=== PATIENT | female | born 1995 | race African-American/Black ===

== ENCOUNTER 2017-12-07 09:15 | Emergency (ER) | payer OTHER, SELFPAY ==
[2017-12-07 09:19] VITALS: BP 114/83; PULSE 70; RESP 12; TEMP 36.4; O2SAT 100
--- NOTE | 2017-12-07 10:15 | W.ED.GENAD ---
Discharge Plan Discharge Details Chief Complaint: DentalOral Clinical Impression: Acute parotitis Reason For Visit: right face pain Primary Care Provider: Kirsten Trivedi ED Provider: Buddy Jorge Disposition Patient Disposition: HOME Condition: Stable Home Meds and New Rx's Prescriptions: New amoxicillin-pot clavulanate 875-125 mg tablet 1 tab PO BID Qty: 14 RF: 0 Continue albuterol sulfate 8.5 GM HFA aerosol inhaler 2 puff Inhalation Q4H PRN Qty: 1 RF: 2 norethindrone-e.estradiol-iron [Minastrin 24 Fe] 1 EACH tablet,chewable 1 ea PO DAILY RF: 0 escitalopram oxalate [Lexapro] 5 MG tablet 1 tab PO DAILY RF: 0 Discharge Instructions Instructions: Sialoadenitis (ED) Additional Instructions: try using lemon drops frequently take 600mg ibuprofen and 1000mg tylenol every 6 hours for pain as needed if you have severe worsening of pain or inability to swallow liquids return to the emergency department if not better in one week see your primary care provider Discharge Data Discharge Physician: Buddy Jorge Medical Decision Making MDM Narrative Medical decision making narrative: Patient here with 3 days of right face pain and on exam has tender and mildly swollen right parotid gland, suspect parotitis. Will have her start sialogogues and to cover for possible dental infection as well will start abx. She has no findings on exam to suggest ludwigs, epilgotitis, or rpa at this time. She is going to f/u with dentist in a few weeks and return precautions given Differential Diagnosis tooth infection, parotitis HPI - General Adult General Mode of arrival: ambulatory. Date/Time Provider Initiated Documentation: 12/07/17 10:07. Limitations to Documentation: no limitations. Information obtained by: patient. History of Present Illness 22 year old F presents to the emergency department with the chief complaint of right face pain, described as moderate, with intensity rated at 5. Quality is described as aching, and is localized to the face. Patient reports no radiation. Patient started experiencing this day(s) (3) and it has been constant. No relieving factors improve symptom(s), No exacerbating factors reported . Patient notes no other symptoms.. Patient did receive the following treatments prior to arrival, none Related Data Home Medications Medication Instructions Recorded Confirmed norethindrone-e.estradiol-iron 1 ea PO DAILY tab.chew 11/20/13 12/07/17 [Minastrin 24 Fe] escitalopram oxalate [Lexapro] 1 tab PO DAILY 10/08/17 12/07/17 Previous Rx's Medication Instructions Recorded amoxicillin-pot clavulanate 1 tab PO BID #14 tab 12/07/17 Allergies Allergy/AdvReac Type Severity Reaction Status Date / Time shellfish derived Allergy Unverified 12/07/17 09:25 General Stated Complaint: DentalOral TEMO: 4 Review of Systems Review of Systems All systems reviewed & are unremarkable except as noted in HPI and below Constitutional Denies chills, Denies fever(s) and Denies weakness Eyes Patient Denies loss of vision ENT Denies change in voice Cardiovascular Denies chest pain and Denies dyspnea Respiratory Denies dyspnea Gastrointestinal Denies abdominal pain, Denies nausea and Denies vomiting Genitourinary Denies dysuria Musculoskeletal Denies joint swelling Integumentary/Breasts Denies rash Neurologic Denies loss of vision and Denies weakness Psychiatric Denies depression Endocrine Denies cold intolerance and Denies heat intolerance Allergic/Immunologic Reports urticaria PFSH Family History Other Diabetes Cerebrovascular accident Mother Asthma Brother Asthma Social History Smoking/Tobacco Use Status: Never Exam Const General: no acute distress Orientation: alert HENMT Head: normal to inspection Ears: external ears normal, TM's normal bilaterally, TM normal on the right and TM normal on the left General nose exam: external nose normal Mouth: oral mucosae normal, tongue normal, oropharynx normal, moist mucous membranes and other (right parotid gland swollen and tender to palpation, no crepitus, no pain over the teeth with percussion) Eyes General: appearance normal, both eyes and all related structures Neck Neck: normal visual inspection Resp Effort & Inspection: normal respiratory effort and able to speak in complete sentences Cardio Rate: regular rate Skin General skin exam: no rashes or lesions noted Neuro General: alert and oriented x3 Extrem General: normal to inspection Psych Mental Status: mental status grossly normal Course Vital Signs Temperature 36.4 C L 12/07/17 09:19 Pulse 70 12/07/17 09:19 Respiratory Rate 12 12/07/17 09:19 Blood Pressure 114/83 12/07/17 09:19 Pulse Oximetry 100 12/07/17 09:19 Temperature 36.4 C L 12/07/17 09:19 Pulse 70 12/07/17 09:19 Respiratory Rate 12 12/07/17 09:19 Blood Pressure 114/83 12/07/17 09:19 Pulse Oximetry 100 12/07/17 09:19
--- NOTE | 2017-12-07 10:18 | ED.GENADUL_ITS ---
Discharge Plan Discharge Details Chief Complaint: DentalOral Clinical Impression: Acute parotitis Reason For Visit: right face pain Primary Care Provider: Kirsten Trivedi ED Provider: Buddy Jorge Disposition Patient Disposition: HOME Condition: Stable Home Meds and New Rx's Prescriptions: New amoxicillin-pot clavulanate 875-125 mg tablet 1 tab PO BID Qty: 14 RF: 0 Continue albuterol sulfate 8.5 GM HFA aerosol inhaler 2 puff Inhalation Q4H PRN Qty: 1 RF: 2 norethindrone-e.estradiol-iron [Minastrin 24 Fe] 1 EACH tablet,chewable 1 ea PO DAILY RF: 0 escitalopram oxalate [Lexapro] 5 MG tablet 1 tab PO DAILY RF: 0 Discharge Instructions Instructions: Sialoadenitis (ED) Additional Instructions: try using lemon drops frequently take 600mg ibuprofen and 1000mg tylenol every 6 hours for pain as needed if you have severe worsening of pain or inability to swallow liquids return to the emergency department if not better in one week see your primary care provider Discharge Data Discharge Physician: Buddy Jorge Medical Decision Making MDM Narrative Medical decision making narrative: Patient here with 3 days of right face pain and on exam has tender and mildly swollen right parotid gland, suspect parotitis. Will have her start sialogogues and to cover for possible dental infection as well will start abx. She has no findings on exam to suggest ludwigs , epilgotitis, or rpa at this time. She is going to f/u with dentist in a few weeks and return precautions given Differential Diagnosis tooth infection, parotitis HPI - General Adult General Mode of arrival: ambulatory . Date/Time Provider Initiated Documentation: 12/07/17 10:07 . Limitations to Documentation: no limitations . Information obtained by: patient . History of Present Illness 22 year old F presents to the emergency department with the chief complaint of right face pain, described as moderate, with intensity rated at 5. Quality is described as aching, and is localized to the face. Patient reports no radiation. Patient started experiencing this day(s) (3) and it has been constant. No relieving factors improve symptom(s), No exacerbating factors reported . Patient notes no other symptoms.. Patient did receive the following treatments prior to arrival, none Related Data Home Medications Medication Instructions Recorded Confirmed norethindrone-e.estradiol-iron 1 ea PO DAILY tab.chew 11/20/13 12/07/17 [Minastrin 24 Fe] escitalopram oxalate [Lexapro] 1 tab PO DAILY 10/08/17 12/07/17 Previous Rx's Medication Instructions Recorded amoxicillin-pot clavulanate 1 tab PO BID #14 tab 12/07/17 Allergies Allergy/AdvReac Type Severity Reaction Status Date / Time shellfish derived Allergy Unverified 12/07/17 09:25 General Stated Complaint: DentalOral TEMO: 4 Review of Systems Review of Systems All systems reviewed & are unremarkable except as noted in HPI and below Constitutional Denies chills, Denies fever(s) and Denies weakness Eyes Patient Denies loss of vision ENT Denies change in voice Cardiovascular Denies chest pain and Denies dyspnea Respiratory Denies dyspnea Gastrointestinal Denies abdominal pain, Denies nausea and Denies vomiting Genitourinary Denies dysuria Musculoskeletal Denies joint swelling Integumentary/Breasts Denies rash Neurologic Denies loss of vision and Denies weakness Psychiatric Denies depression Endocrine Denies cold intolerance and Denies heat intolerance Allergic/Immunologic Reports urticaria PFSH Family History Other Diabetes Cerebrovascular accident Mother Asthma Brother Asthma Social History Smoking/Tobacco Use Status: Never Exam Const General: no acute distress Orientation: alert HENMT Head: normal to inspection Ears: external ears normal, TM's normal bilaterally, TM normal on the right and TM normal on the left General nose exam: external nose normal Mouth: oral mucosae normal, tongue normal, oropharynx normal, moist mucous membranes and other (right parotid gland swollen and tender to palpation, no crepitus, no pain over the teeth with percussion) Eyes General: appearance normal, both eyes and all related structures Neck Neck: normal visual inspection Resp Effort & Inspection: normal respiratory effort and able to speak in complete sentences Cardio Rate: regular rate Skin General skin exam: no rashes or lesions noted Neuro General: alert and oriented x3 Extrem General: normal to inspection Psych Mental Status: mental status grossly normal Course Vital Signs Temperature 36.4 C L 12/07/17 09:19 Pulse 70 12/07/17 09:19 Respiratory Rate 12 12/07/17 09:19 Blood Pressure 114/83 12/07/17 09:19 Pulse Oximetry 100 12/07/17 09:19 Temperature 36.4 C L 12/07/17 09:19 Pulse 70 12/07/17 09:19 Respiratory Rate 12 12/07/17 09:19 Blood Pressure 114/83 12/07/17 09:19 Pulse Oximetry 100 12/07/17 09:19
== END 2017-12-07 10:36 | disposition home or self-care (01) ==
PROVIDERS: Emergency Provider Emergency Medicine; PCP Nurse Practitioner Family
DX: K11.21 Acute sialoadenitis (principal)
CPT/HCPCS: 99283

== ENCOUNTER 2018-05-03 10:36 | Emergency (ER) | payer OTHER, SELFPAY ==
[2018-05-03 10:39] VITALS: BP 124/76; PULSE 74; RESP 18; TEMP 36.7; O2SAT 96
--- NOTE | 2018-05-03 12:02 | ED.GENADUL_ITS ---
Discharge Plan Disposition Patient Disposition: HOME Condition: Stable Discharge Details Chief Complaint: RashLesion Clinical Impression: Periorbital cellulitis of left eye, Dry skin dermatitis Primary Care Provider: Kirsten Trivedi ED Provider: Loki Espinosa Home Meds and New Rx's Prescriptions: New amoxicillin-pot clavulanate 875-125 mg tablet 1 tab PO Q12H 7 Days Qty: 14 RF: 0 Continued albuterol sulfate 8.5 GM HFA aerosol inhaler 2 puff Inhalation Q4H PRN Qty: 1 RF: 2 Bcp By [facility] 1 tab PO DAILY RF: 0 escitalopram oxalate [Lexapro] 5 MG tablet 1 tab PO DAILY RF: 0 Discharge Instructions Instructions: Cellulitis (ED), Eczema (ED), Dermatitis (ED) Additional Instructions: Please take antibiotic as prescribed and until fully complete. Return to the emergency department for any new or significant worsening of symptoms otherwise use hydrating hypoallergenic body wash, take Benadryl as needed for itching, and follow-up with your primary care provider if not improving over the next week. Referrals: Kirsten Trivedi [Primary Care Provider] - (As needed for reassessment) Medical Decision Making Patient presenting to the emergency department for chief complaint of rash and itching all over. She states that she tried a new facial wash which caused some itching and swelling to her face but then she developed itching all over . She denies any other area of rash. She saw her primary care provider a couple days ago who told her to take Benadryl and to monitor symptoms. She states that she has noted some increased swelling to her left eye. Physical exam shows a dry scaly rash to left eyebrow with swelling in the periorbital region. EOMs are intact and examination of the eye is otherwise unremarkable. Patient does have some also swelling to nose but no vesicles, no drainage. Head to toe skin exam shows no other rash noted. There is also no rash to the ear, rest of the face, or within the oral mucosa. Concern for dermatitis with possible secondary periorbital cellulitis of the left eye. Consideration of herpes zoster is made but given no vesicles and duration of symptoms, and description of head to toe itching, without any other associated findings I doubt zoster at this time. Given concern of cellulitis patient placed up on Augmentin for 7 days and encouraged to return for any new or significant worsening of symptoms after discussion of diagnosis and plan of care patient has no further needs, questions, or concerns and states clear understanding to return to the emergency department for any worsening symptoms. HPI General Mode of arrival: ambulatory . Date/Time Provider Initiated Documentation: 05/03/18 10:42 . Limitations to Documentation: no limitations . Information obtained by: RN notes reviewed . History of Present Illness 23 year old F presents to the emergency department with the chief complaint of rash, described as moderate, Quality is described as other (itching- denies pain), Patient started experiencing this week(s) (1) and it has been constant. No relieving factors improve symptom(s), No exacerbating factors reported . Patient did receive the following treatments prior to arrival, other (Benadryl) Related Data Home Medications Medication Instructions Recorded Confirmed albuterol sulfate 2 puff INHALATION Q4H PRN #1 11/20/13 05/03/18 inhaler escitalopram oxalate [Lexapro] 1 tab PO DAILY 10/08/17 05/03/18 Bcp By [facility] 1 tab PO DAILY 05/03/18 amoxicillin-pot clavulanate 1 tab PO Q12H 7 Days #14 tab 05/03/18 Previous Rx's Medication Instructions Recorded amoxicillin-pot clavulanate 1 tab PO Q12H 7 Days #14 tab 05/03/18 Allergies Allergy/AdvReac Type Severity Reaction Status Date / Time shellfish derived Allergy Unknown Unverified 05/03/18 10:47 General Stated Complaint: RashLesion TEMO: 4 Review of Systems Constitutional Denies chills and Denies fever(s) Eyes Denies blurry vision, Denies dry eyes, Denies itchy eyes and Reports other (Left eye swelling) ENT Denies lip swelling, Denies neck pain, Denies throat swelling and Denies tongue swelling Cardiovascular Denies chest pain and Denies dyspnea Respiratory Denies cough, Denies dyspnea and Denies wheezing Gastrointestinal Denies abdominal pain, Denies diarrhea and Denies vomiting Musculoskeletal Denies neck pain Integumentary/Breasts Reports as per HPI Allergic/Immunologic Denies itchy eyes, Denies lip swelling, Denies throat swelling, Denies tongue swelling and Denies wheezing PFSH Family History Other Diabetes Stroke Mother Asthma Brother Asthma Social History Smoking/Tobacco Use Status: Never Exam Const General: cooperative, healthy appearing, comfortable and no acute distress Orientation: alert, awake and oriented x3 HENMT Head: no palpable skull fracture and normocephalic Ears: hearing grossly normal bilaterally and TM's normal bilaterally General nose exam: other (Slight swelling and erythema to nose no vesicles) Mouth: oral mucosae normal, lip normal and tongue normal Throat: posterior oropharynx normal, tonsils normal and uvula midline Eyes Periorbital: periorbital findings abnormal left periorbital swelling and periorbital erythema Conjunctivae: conjunctivae normal Sclera: sclerae normal Cornea: corneas normal Pupils: PERRL and normal by confrontation EOM: EOM intact bilaterally Resp Effort & Inspection: normal respiratory effort, able to speak in complete sentences, no audible wheezes and no stridor Skin Rashes: rashes noted (Dry scaly rash to left eyelid) Course Vital Signs Temperature 36.7 C 05/03/18 10:39 Pulse 74 05/03/18 10:39 Respiratory Rate 18 05/03/18 10:39 Blood Pressure 124/76 05/03/18 10:39 Pulse Oximetry 96 05/03/18 10:39 Temperature 36.7 C 05/03/18 10:39 Temperature Source Temporal Artery Scan 05/03/18 10:39 Pulse 74 05/03/18 10:39 Respiratory Rate 18 05/03/18 10:39 Respiratory Effort Non-Labored 05/03/18 10:45 Blood Pressure 124/76 05/03/18 10:39 Blood Pressure Position Sitting 05/03/18 10:39 Pulse Oximetry 96 05/03/18 10:39 Oxygen Delivery Method Room Air 05/03/18 10:39 Oxygen Flow Rate 0 05/03/18 10:39 Pain Level 0 05/03/18 10:39
[2018-05-03 12:21] VITALS: BP 124/76; PULSE 74; RESP 18; TEMP 36.7; O2SAT 96
[2018-05-03] MEDS: Amoxicillin 875/Clav. 125 TAB (12:21)
== END 2018-05-03 12:23 | disposition home or self-care (01) ==
PROVIDERS: Emergency Provider Nurse Practitioner Family; PCP Nurse Practitioner Family
DX: L03.213 Periorbital cellulitis (principal); L98.8 Other specified disorders of the skin and subcutaneous tissue
CPT/HCPCS: 99283

== ENCOUNTER 2018-11-09 14:59 | Outpatient (REF) | payer MEDICAID, SELFPAY ==
[2018-11-09 19:10] LABS: Hemoglobin A1C 5.4 % (4.5-6.2)
[2018-11-09 19:21] LABS: TSH (W/Ref FT4) 1.45 uIU/mL (0.36-3.74)
== END 2018-11-09 15:19 ==
LOC: NCHCN 14:59
PROVIDERS: PCP Nurse Practitioner Family; Visit Provider Nurse Practitioner Family
DX: R63.2 Polyphagia (principal); Z83.3 Family history of diabetes mellitus
CPT/HCPCS: 83036; 84443

== ENCOUNTER 2018-11-16 16:11 | Emergency (ER) | payer MEDICAID, SELFPAY ==
[2018-11-16 16:15] VITALS: BP 126/74; PULSE 108; RESP 18; TEMP 36.4; O2SAT 98
--- NOTE | 2018-11-16 16:27 | ED.GENADUL_ITS ---
Discharge Plan Disposition Patient Disposition: HOME Condition: Stable Discharge Details Chief Complaint: DentalOral Clinical Impression: Pain, dental Primary Care Provider: Kirsten Trivedi ED Provider: Buddy Jorge Home Meds and New Rx's Prescriptions: New penicillin V potassium 500 mg tablet 500 mg PO QID 7 Days Qty: 28 RF: 0 Continued albuterol sulfate 8.5 GM HFA aerosol inhaler 2 puff Inhalation Q4H PRN Qty: 1 RF: 2 Discharge Instructions Instructions: Toothache (ED) Additional Instructions: you can take 1000mg tylenol and 600mg ibuprofen every 6 hours for pain as needed if you have severe worsening symptoms or difficulty breathing or swallowing return to the emergency department follow up with your dentist within 1-2 weeks if possible if pain continues Medical Decision Making 23 yo female comes in with right lower jaw pain. STates she cracked her right lower mid molar a month or two ago. HAs had increased paint he past few days. She has no submandibular swelling, no pain over hyoid and no restricted neck movements, normal oropharynx, no findings to suggest ludwigs, rpa, well logging captain mud analysis, epiglotitis. Has pain with percussion of the right lower mid molar without periapical abscess at this time. Will place roselia bx for possible tooth infection and advised f/u with dentist if not better and return precautions given Differential Diagnosis dental pain, tmj disorder, neck strain HPI General Mode of arrival: ambulatory . Date/Time Provider Initiated Documentation: 11/16/18 16:12 . Limitations to Documentation: no limitations . Information obtained by: patient . History of Present Illness 23 year old F presents to the emergency department with the chief complaint of dental pain, described as moderate, Quality is described as aching, and is localized to the mouth. Patient reports no radiation. Patient started experiencing this day(s) (3) and it has been constant. No relieving factors improve symptom(s), No exacerbating factors reported . Patient did receive the following treatments prior to arrival, NSAID Related Data Home Medications Medication Instructions Recorded Confirmed albuterol sulfate 2 puff INHALATION Q4H PRN #1 11/20/13 11/16/18 inhaler penicillin V potassium 500 mg PO QID 7 Days #28 tab 11/16/18 Previous Rx's Medication Instructions Recorded penicillin V potassium 500 mg PO QID 7 Days #28 tab 11/16/18 Allergies Allergy/AdvReac Type Severity Reaction Status Date / Time shellfish derived Allergy Unknown Unverified 11/16/18 16:21 General Stated Complaint: DentalOral TEMO: 4 Review of Systems Review of Systems All systems reviewed & are unremarkable except as noted in HPI and below Constitutional Denies chills, Denies fever(s) and Denies weakness Cardiovascular Denies chest pain and Denies dyspnea Respiratory Denies cough and Denies dyspnea Gastrointestinal Denies abdominal pain, Denies nausea and Denies vomiting Musculoskeletal Denies joint swelling Neurologic Denies weakness ON LICENSE OF [facility] Social History Smoking/Tobacco Use Status: Never Alcohol Intake: never Drug use: Never Do you feel safe at home: Yes Do you feel safe in your relationship?: Yes Exam Const General: no acute distress Orientation: alert HENMT Head: normal to inspection Ears: external ears normal General nose exam: external nose normal Mouth: moist mucous membranes Eyes General: appearance normal, both eyes and all related structures Neck Neck: normal visual inspection Resp Effort & Inspection: normal respiratory effort and able to speak in complete sentences Cardio Rate: regular rate Skin General skin exam: no rashes or lesions noted Neuro General: alert and oriented x3 Extrem General: normal to inspection Psych Mental Status: mental status grossly normal Course Vital Signs Temperature 36.4 C L 11/16/18 16:15 Pulse 108 H 11/16/18 16:15 Respiratory Rate 18 11/16/18 16:15 Blood Pressure 126/74 11/16/18 16:15 Pulse Oximetry 98 11/16/18 16:15 Temperature 36.4 C L 11/16/18 16:15 Temperature Source Temporal Artery Scan 11/16/18 16:15 Pulse 108 H 11/16/18 16:15 Respiratory Rate 18 11/16/18 16:15 Respiratory Effort Non-Labored 11/16/18 16:20 Blood Pressure 126/74 11/16/18 16:15 Blood Pressure Position Sitting 11/16/18 16:15 Pulse Oximetry 98 11/16/18 16:15 Oxygen Delivery Method Room Air 11/16/18 16:15 Oxygen Flow Rate 0 11/16/18 16:15 Pain Level 8 11/16/18 16:15
== END 2018-11-16 16:45 | disposition home or self-care (01) ==
LOC: ER 16:50
PROVIDERS: Emergency Provider Emergency Medicine; PCP Nurse Practitioner Family
DX: R68.84 Jaw pain (principal); K08.89 Other specified disorders of teeth and supporting structures; K03.81 Cracked tooth
CPT/HCPCS: 99283

== ENCOUNTER 2020-06-08 04:12 | Outpatient (CLI) | payer MEDICAID, SELFPAY ==
[2020-06-15 09:46] LABS: Hemoglobin S Screen Negative (Negative)
== END 2020-06-08 04:13 | disposition home or self-care (01) ==
LOC: LOS 04:12
PROVIDERS: Physician Assistant; PCP Nurse Practitioner Family; Visit Provider Nurse Practitioner Family
DX: Z13.0 Encounter for screening for diseases of the blood and blood-forming organs and certain disorders involving the immune mechanism (principal)
CPT/HCPCS: 36415; 85660

== ENCOUNTER 2020-07-15 10:46 | Outpatient (REF) | payer MEDICAID, SELFPAY ==
--- NOTE | 2020-07-15 10:10 | PAPFT_PTH ---
PATIENT: Carrie Triana LOC: [facility] U#:[id number] AGE/SX: 25/F ROOM: RE07/15/[address]: Laureen Jorge NP : 1995 BED: DIS: 07/15/2020 SPEC #: [id number] RECD: 07/15/20 12:52 STATUS: OMA REIoana #: [id number] RITU: 07/15/20 10:[address]: Laureen Jorge NP DEPT: [facility] Cytology RECD BY: Franny Gonzales ENTERED: 07/15/20 12:52 SP TYPE: PAPFT OTHR DR: Kirsten Trivedi Tissues: 1 - CX/ENDOCX FOR PAP SMEARS Procedures: PAP THIN PREP/[facility] Screening Comments: [id number]
== END 2020-07-15 10:47 | disposition home or self-care (01) ==
LOC: LBN 10:46
PROVIDERS: PCP Nurse Practitioner Family; Visit Provider Nurse Practitioner Women's Health
DX: Z12.4 Encounter for screening for malignant neoplasm of cervix (principal)
CPT/HCPCS: 88142

== ENCOUNTER 2021-02-12 18:20 | Outpatient (REF) | payer MEDICAID, SELFPAY ==
[2021-02-14 15:04] LABS: COVID-19 RT-PCR UVMMC Result Negative (Negative)
== END 2021-02-12 18:21 | disposition home or self-care (01) ==
LOC: LBN 18:20
PROVIDERS: PCP Nurse Practitioner Family; Visit Provider Nurse Practitioner Family
DX: Z20.822 Contact with and (suspected) exposure to COVID-19; J02.9 Acute pharyngitis, unspecified; R51.9 Headache, unspecified; R52 Pain, unspecified; R68.83 Chills (without fever)
CPT/HCPCS: U0003; 87070

== ENCOUNTER 2021-02-13 14:17 | Emergency (ER) | payer MEDICAID, SELFPAY ==
--- NOTE | 2021-02-13 14:15 | RT.EKG_ITS ---
APPROVED REPORT Exam: Resting ECG Reason for Exam: CHEST PAIN Patient Location: E HR:112 bpm ECG Measurements Heart Rate 112 AXIS DE 143 P 48 QRSd 78 QRS 24 QT 331 T 34 QTc 452 Conclusion Sinus tachycardia...rate> 99
[2021-02-13 14:25] VITALS: BP 125/60; PULSE 104; RESP 18; TEMP 36.6; O2SAT 99
--- NOTE | 2021-02-13 14:45 | DI.RAD_ITS ---
Exam(s) XR PORTABLE CHEST AP EXAM: XR PORTABLE CHEST AP CLINICAL HISTORY: cough productive TECHNIQUE: 2D digital imaging was performed of the chest. One image was obtained. An AP view was ob tained. COMPARISON: No exams were available for comparison FINDINGS: MEDIASTINUM: Normal. HEART: Normal. PULMONARY VASCULATURE: Normal. LUNGS: Clear. PLEURAL SPACE: No pleural effusion or pneumothorax. BONE:Within normal limits for the patient's age. OTHER FINDINGS:Normal. IMPRESSION: No acute pulmonary findings. DATA REPOSITORY: RADIATION DOSE DELIVERED:
[2021-02-13] MEDS: Lactated Ringers 500 ML IV (15:00)
[2021-02-13 15:04] VITALS: RESP 20
[2021-02-13] MEDS: Ibuprofen 600 MG TAB PO (15:18)
[2021-02-13] MEDS: Albuterol 2.5 MG/3 ML INH SOLN VIAL (15:18)
--- NOTE | 2021-02-13 15:21 | ED.GENADUL_ITS ---
Discharge Plan Disposition Patient Disposition: HOME Condition: Stable Discharge Details Clinical Impression: Asthma exacerbation, Bronchitis Primary Care Provider: Kirsten Trivedi ED Provider: Carter Avendano Home Meds and New Rx's Prescriptions: New doxycycline hyclate 100 mg capsule 100 mg PO BID Qty: 9 RF: 0 Continued prednisone 20 mg tablet 40 mg PO DAILY Qty: 10 RF: 0 albuterol sulfate 90 mcg/actuation HFA aerosol inhaler 2 puff inhalation Q6H PRN (Reason: shortness of breath or wheezing) Qty: 8.5 RF: 0 medroxyprogesterone 150 mg/mL syringe 150 mg IM [id number] Qty: 1 RF: 5 Discontinued triamcinolone acetonide 0.025 % ointment 1 applic topical TID Qty: 15 RF: 0 azithromycin 250 mg tablet See Rx Instructions PO .COMPLEX Qty: 6 RF: 0 albuterol sulfate 8.5 GM HFA aerosol inhaler 2 puff Inhalation Q4H PRN Qty: 1 RF: 2 Discharge Instructions Instructions: Asthma (ED), Acute Bronchitis (ED) Additional Instructions: Please rest over the next few days and avoid any activities that worsen shortness of breath or chest discomfort. Stop taking azithromycin and start doxycycline as prescribed. Drink plenty of fluid to stay hydrated. Continue prednisone as prescribed. Continue to use your albuterol as prescribed 2 puffs every 4-6 hours. Please contact your primary care physician to arrange follow-up. Return to the ER immediately for any worsening or new concerning symptoms. Referrals: Kirsten Trivedi [Primary Care Provider] - Discharge Data Discharge Date/Time-TO BE ENTERED AT DEPARTURE: 02/13/21 16:30 Medical Decision Making 1530 --26-year-old female with history of asthma, here with 3 days of productive cough, body aches, chest discomfort, recently seen at [facility] and felt to have community-acquired pneumonia with asthma exacerbation, started on prednisone, first dose taken this morning, and also azithromycin. Patient is vaccinated for Covid and Covid test pending from yesterday. Patient is saturating well in no respiratory distress. Normotensive. Mild tachycardia noted. Lungs diminished at bases bilaterally. Suspect URI with asthma exacerbation. I will give albuterol neb treatment. Considered pneumonia. I will check chest x-ray. 1605 --labs reviewed and nondiagnostic. D-dimer negative. chest x-ray reviewed and interpreted by radiology: No significant acute abnormality evident in the chest. Suspect bronchitis with asthma exacerbation. Given local resistance to azithromycin, I will switch antibiotic to doxycycline. Patient instructed to continue take prednisone and albuterol as prescribed. She is encouraged to follow-up with primary care physician and return immediately should she have any worsening or new concerning symptoms. HPI General Mode of arrival: ambulatory . Date/Time Provider Initiated Documentation: 02/13/21 14:47 . Limitations to Documentation: no limitations . Information obtained by: patient . HPI Narrative: 26-year-old female with history of asthma, here with chief complaint of chest discomfort in the past 3 days. She notes pain is localized to central and right chest. She notes cough productive of yellow/green phlegm over the past 2 days as well. She has had sore throat. Denies associated fever. Chest pain is mild to moderate and worse with cough. She has associated body aches. Patient was seen at [facility] yesterday for same symptoms. She was felt to have community-acquired pneumonia and asthma exacerbation and started on azithromycin and prednisone. She notes her first prednisone dose was today. She started azithromycin last night. Related Data Home Medications Medication Instructions Recorded Confirmed medroxyprogesterone 150 mg/mL 150 mg IM [id number] #1 ml 10/06/20 02/13/21 intramuscular syringe albuterol sulfate 90 mcg/actuation 2 puff INHALATION Q6H PRN #8.5 g 02/12/21 02/13/21 aerosol inhaler prednisone 20 mg tablet 40 mg PO DAILY #10 tab 02/12/21 02/12/21 doxycycline hyclate 100 mg PO BID #9 cap 02/13/21 Previous Rx's Medication Instructions Recorded medroxyprogesterone 150 mg/mL 150 mg IM [id number] #1 ml 10/06/20 intramuscular syringe albuterol sulfate 90 mcg/actuation 2 puff INHALATION Q6H PRN #8.5 g 02/12/21 aerosol inhaler prednisone 20 mg tablet 40 mg PO DAILY #10 tab 02/12/21 doxycycline hyclate 100 mg PO BID #9 cap 02/13/21 Allergies Allergy/AdvReac Type Severity Reaction Status Date / Time shellfish derived Allergy Unknown Verified 02/13/21 14:35 General Stated Complaint: Chest Pain TEMO: 2 Review of Systems All systems reviewed & are unremarkable except as noted in HPI and below Constitutional Constitutional: Denies fever(s) ENT Ears, Nose, Mouth, and Throat: Reports as per HPI Respiratory Respiratory: Reports as per HPI Musculoskeletal Comments: Patient concern for swelling anterior central chest PFSH Medical History Contraception Depo for dysmenorrhea Family History Other Diabetes MGM Stroke MGM Mother Asthma Breast cancer Brother Asthma Social History Smoking/Tobacco Use Status: Never Smoking risk assessment performed?: Yes Alcohol Intake: never Drug use: Never Do you feel safe at home: Yes Do you feel safe in your relationship?: Yes Female Reproductive History Menstrual control method: progesterone injection History History 0 Para Hx # Term Pregnancies Multiple births Hx # Pregnancies Ectopic pregnancies AB induced Hx Number of Living Children AB spontaneous Exam Const General: cooperative and no acute distress HENMT Mouth: moist mucous membranes Eyes Conjunctivae: normal conjunctivae Sclera: normal sclerae Neck Neck: trachea midline and supple Chest Other: Anterior chest was examined with female nurse textile chemist present, no inflammatory changes, mild tenderness centrally over lower sternum with no appreciable swelling Resp Auscultation: clear to auscultation bilaterally, no rales, no rhonchi and no wheezes Cardio Rate: tachycardic (102) Rhythm: regular rhythm Heart Sounds: no murmurs GI Palpation: soft, not firm, no guarding, no masses, not rigid and nontender Skin General skin exam: no rashes or lesions noted Neuro General: patient alert, patient awake, patient oriented x3 and tone normal Extrem General: no calf tenderness and no edema Psych Appearance: grossly normal Mental Status: mental status grossly normal Speech and Movement: speech and movement normal Course Vital Signs Vital signs: Vital Signs Temperature 36.6 C 02/13/21 14:25 Pulse 104 H 02/13/21 14:25 Respiratory Rate 18 02/13/21 14:25 Blood Pressure 125/60 02/13/21 14:25 Pulse Oximetry 99 02/13/21 14:25 Temperature 36.6 C 02/13/21 14:25 Temperature Source Skin 02/13/21 14:25 Pulse 104 H 02/13/21 14:25 Respiratory Rate 20 11/13/21 15:04 Respiratory Effort Non-Labored 02/13/21 15:04 Respiratory Depth Normal 02/13/21 15:04 Respiratory Pattern Normal 02/13/21 15:04 Blood Pressure 125/60 02/13/21 14:25 Pulse Oximetry 99 02/13/21 14:25 Oxygen Delivery Method Room Air 02/13/21 14:25 Oxygen Flow Rate 0 02/13/21 14:25 Pain Level 7 02/13/21 15:04
[2021-02-13 15:25] LABS: Abs Immature Grans 0.02 10^3/uL (0.0-0.06); Absolute Basophil Count 0.03 10^3/uL (0.0-0.2); Absolute Lymphocyte Count 0.48 10^3/uL (1.2-3.4); Absolute Monocyte Count 0.09 10^3/uL (0.1-0.8); Absolute Neutrophil Count 5.88 10^3/uL (1.2-6.7); Basophils % 0.5; HCT 41.4 % (36.0-46.0); HGB 14.1 g/dL (11.2-15.7); Immature Grans % 0.3; Lymphocytes % 7.4; MCH 28.5 pg (27.0-33.0); MCHC 34.1 % (32.0-36.0); MCV 83.8 fL (80-95); Monocytes % 1.4; Neutrophils % 90.4; Nucleated RBC 0 %; Platelet Count 144 10^3/uL (130-400); RBC 4.94 10^6/uL (3.93-5.22); RDW 12.8 % (11.7-14.6); RDW-SD 38.8 fL
[2021-02-13 15:37] LABS: Albumin 3.6 g/dL (3.4-5.0); Alkaline Phosphatase 79 U/L (46-116); Anion Gap 10.8 mmol/L (3-11); BUN 10 mg/dL (7-18); Bilirubin, Total 0.4 mg/dL (0.2-1.0); CO2 24.2 mmol/L (21.0-32.0); CREATININE 0.7 mg/dL (0.55-1.02); Calcium 9.3 mg/dL (8.5-10.1); Chloride 105 mmol/L (98-107); Glucose 146 mg/dL (74-106); Potassium 3.8 mmol/L (3.5-5.1); Sodium 140 mmol/L (136-145); Total Protein 7.8 g/dL (6.4-8.2)
[2021-02-13 15:38] LABS: ALT 20 U/L (14-59); AST 16 U/L (15-37); Troponin I < 0.05 ng/mL (<0.06)
[2021-02-13 15:50] LABS: D-Dimer 272 ng/mlFEU (<500)
--- NOTE | 2021-02-13 16:05 | DI.VRAD_ITS ---
PROCEDURE INFORMATION: Exam: XR Chest Exam date and time: 02/13/2021 2:52 PM Age: 26 years old Clinical indication: Other: Cough productive TECHNIQUE: Imaging protocol: XR of the chest. Views: 1 view. COMPARISON: No relevant prior studies available. FINDINGS: Lungs: Unremarkable. No consolidation. Pleural spaces: Unremarkable. No pleural effusion. No pneumothorax. Heart/Mediastinum: Unremarkable. No cardiomegaly. Bones/joints: Unremarkable. Soft tissues: There is overlying soft tissue artifact, presumably from the patient's hair. IMPRESSION: No evidence for acute abnormality in the chest. Dictated and Authenticated by: Kianna Montiel MD. Ordering:JAVI Machado MD
[2021-02-13] MEDS: Doxycycline Hyclate 100 MG CAP PO (16:16)
[2021-02-13 16:26] VITALS: BP 119/69; PULSE 109; RESP 18; O2SAT 99
== END 2021-02-13 16:30 | disposition home or self-care (01) ==
PROVIDERS: Emergency Provider Student in an Organized Health Care Education/Training Program; PCP Nurse Practitioner Family
DX: J45.901 Unspecified asthma with (acute) exacerbation (principal); J20.9 Acute bronchitis, unspecified
CPT/HCPCS: 36415; 80053; 93005; 94640; 96360; 99284; 71045; 84484; 85025; 85379; 93010; 99283; J7613

== ENCOUNTER 2021-07-07 00:54 | Outpatient (CLI) | payer MEDICAID, SELFPAY ==
--- NOTE | 2021-07-07 07:45 | DI.US_ITS ---
Exam(s) US PELVIS EXAM: US PELVIS CLINICAL HISTORY: Left sided pelvic pain,R10.2 TECHNIQUE: Ultrasound of the pelvis was performed transabdominally.. COMPARISON: US PELVIS ULTRASOUND *(P) from 11/28/2011 FINDINGS: UTERUS: Nongravid and anteverted Measures 6.6 cm length x 2.8 cm AP x 4.3 cm wide. There are no uterine fibroids. Endometrial thickness measures 3 mm. There is no fluid in the endometrial canal. CERVIX: There are no obvious nabothian cysts. RIGHT OVARY: Measures 1.6 x 1.1 x 1.9 cm No significant cysts nor masses evident in the right ovary. LEFT OVARY: Measures 1.7 x 1.4 x 1.2 cm No significant cysts nor masses evident in the left ovary. CUL-DE-SAC: No free fluid evident. IMPRESSION: 1. Normal appearing uterus and age-appropriate endometrium. 2. No ovarian masses. No extraovarian adnexal masses. 3. No free fluid evident in the adnexal regions and cul-de-sac. DATA REPOSITORY:
== END 2021-07-07 01:14 ==
PROVIDERS: PCP Nurse Practitioner Family; Visit Provider Nurse Practitioner Women's Health
DX: R10.2 Pelvic and perineal pain (principal); R10.32 Left lower quadrant pain
CPT/HCPCS: 76856

== ENCOUNTER 2021-10-29 18:12 | Outpatient (REF) | payer MEDICAID, SELFPAY ==
[2021-11-01 14:53] LABS: Chlamydia Result Negative (Negative); GC Result Negative (Negative)
== END 2021-10-29 18:13 | disposition home or self-care (01) ==
LOC: LBN 18:12
PROVIDERS: PCP Nurse Practitioner Family; Visit Provider Advanced Practice Midwife
DX: Z11.3 Encounter for screening for infections with a predominantly sexual mode of transmission (principal)
CPT/HCPCS: 87491; 87529; 87591

== ENCOUNTER 2022-02-09 16:38 | Outpatient (REF) | payer MEDICAID, SELFPAY ==
[2022-02-11 17:23] LABS: HSV 1 DNA Result Negative (Negative); HSV 2 DNA Result Positive (Negative)
== END 2022-02-09 16:39 | disposition home or self-care (01) ==
LOC: LBN 16:38
PROVIDERS: PCP Nurse Practitioner Family; Visit Provider Nurse Practitioner Women's Health
DX: N89.8 Other specified noninflammatory disorders of vagina (principal); B00.89 Other herpesviral infection
CPT/HCPCS: 87529